=== PATIENT | male | born 1990 | race Caucasian/White ===

== ENCOUNTER → 2017-02-27 | Outpatient (REF) | LOC: WSOH 10:37 | DX: Z01.89 Encounter for other specified special examinations (principal) ==

== ENCOUNTER 2017-03-03 12:53 | Outpatient (RCR) | payer OTHER | END 2017-05-05 09:45 | LOC: WSOH 12:53 | DX: S60.012A Contusion of left thumb without damage to nail, initial encounter (principal); S61.412A Laceration without foreign body of left hand, initial encounter; W26.8XXA Contact with other sharp object(s), not elsewhere classified, initial encounter; Y99.0 Civilian activity done for income or pay ==